=== PATIENT | female | born 2000 | race Two or more races ===

== ENCOUNTER 2020-06-04 13:06 | Inpatient (IN) | payer OTHER ==
[2020-06-04 14:43] VITALS: BMI 34.1
[2020-06-04] MEDS ORDERED: BISMUTH SUBSALICYLATE 262 MG/15 ML BTL PO PRN (15:24)
[2020-06-04] MEDS ORDERED: MAGNESIUM CITRATE 300 ML BOTTLE PO PRN (15:24)
[2020-06-04] MEDS ORDERED: METHOCARBAMOL 500 MG TABLET PO PRN (15:24)
[2020-06-04] MEDS ORDERED: ACETAMINOPHEN 325 MG TABLET (FP) PO PRN ×2 (15:24)
[2020-06-04] MEDS ORDERED: IBUPROFEN 400 MG TABLET (FP) PO PRN (15:24)
[2020-06-04] MEDS ORDERED: MENTHOL/PHENOL 1 EACH UD MM PRN (15:24)
[2020-06-04] MEDS ORDERED: ONDANSETRON *ODT* 4 MG TABLET SL PRN (15:24)
[2020-06-04] MEDS ORDERED: MAG HYDROX/AL HYDROX/SIMETH 30 ML UNIT-DOSE CUP PO PRN (15:24)
[2020-06-04] MEDS ORDERED: LORazepam 1 MG TABLET PO PRN (15:24)
[2020-06-04] MEDS ORDERED: MAGNESIUM HYDROX 2400MG/30ML ORAL SUSPENSION 30 ML CUP PO PRN (15:24)
[2020-06-04 17:12] LABS: HEMATOCRIT 37.5 % (32.4-45.2); HEMOGLOBIN 12.4 GM/dL (10.7-15.3); MCH 31.1 pg (25.7-33.7); MCHC 33.2 g/dl (32.0-36.0); MEAN CELL VOLUME 93.8 fl (80-96); PLATELET COUNT 273 K/MM3 (134-434); RDW 15.9 % (11.6-15.6); WHITE BLOOD COUNT 6.7 K/mm3 (4.0-10.0)
[2020-06-04 17:14] LABS: POTASSIUM 3.8 mmol/L (3.5-5.1)
[2020-06-04 17:18] LABS: ALBUMIN 3.6 g/dl (3.4-5.0); CALCIUM 8.8 mg/dL (8.5-10.1)
[2020-06-04 17:19] LABS: BLOOD UREA NITROGEN 10.4 mg/dL (7-18)
[2020-06-04 17:21] LABS: CREATININE 0.7 mg/dL (0.55-1.3)
[2020-06-04 17:23] LABS: BILIRUBIN,TOTAL 0.5 mg/dL (0.2-1); TOT PROT 7.3 g/dl (6.4-8.2)
[2020-06-04] MEDS: LORazepam 2 MG TABLET PO SCH ×2 (17:31→22:17)
[2020-06-04] MEDS: hydrOXYzine PAMOATE 25 MG CAPSULE (FP) PO SCH ×2 (17:32→22:17)
[2020-06-04] MEDS: NICOTINE POLACRILEX 2 MG GUM BUC PRN (17:36)
[2020-06-04] MEDS: MELATONIN 5 MG TABLETS PO SCH (22:17)
[2020-06-04] MEDS: THIAMINE HCL 100 MG TABLET (FP) PO SCH (22:17)
[2020-06-05] MEDS: LORazepam 2 MG TABLET PO SCH ×4 (06:08→23:06)
[2020-06-05] MEDS: hydrOXYzine PAMOATE 25 MG CAPSULE (FP) PO SCH ×2 (06:09→10:15)
[2020-06-05] MEDS: PRENATAL VITAMINS W/ FOLIC ACID TABLET (FP) PO SCH (10:14)
[2020-06-05] MEDS: hydrOXYzine PAMOATE 25 MG CAPSULE (FP) PO PRN (14:15)
[2020-06-05] MEDS: MELATONIN 5 MG TABLETS PO SCH (23:06)
[2020-06-05] MEDS: THIAMINE HCL 100 MG TABLET (FP) PO SCH (23:06)
[2020-06-06] MEDS: LORazepam 1 MG TABLET PO SCH ×4 (05:50→22:11)
[2020-06-06] MEDS: PRENATAL VITAMINS W/ FOLIC ACID TABLET (FP) PO SCH (10:30)
[2020-06-06] MEDS: NICOTINE POLACRILEX 2 MG GUM BUC PRN ×2 (12:44→19:14)
[2020-06-06] MEDS: hydrOXYzine PAMOATE 25 MG CAPSULE (FP) PO PRN (15:56)
[2020-06-06] MEDS: MELATONIN 5 MG TABLETS PO SCH (22:11)
[2020-06-06] MEDS: THIAMINE HCL 100 MG TABLET (FP) PO SCH (22:30)
[2020-06-07] MEDS ORDERED: LORazepam 0.5 MG TABLET PO PRN
[2020-06-07] MEDS: LORazepam 0.5 MG TABLET PO SCH ×4 (05:48→22:10)
[2020-06-07] MEDS: NICOTINE POLACRILEX 2 MG GUM BUC PRN ×3 (10:13→22:18)
[2020-06-07] MEDS: PRENATAL VITAMINS W/ FOLIC ACID TABLET (FP) PO SCH (10:13)
[2020-06-07] MEDS: hydrOXYzine PAMOATE 25 MG CAPSULE (FP) PO PRN ×2 (17:56→22:10)
[2020-06-07] MEDS: MELATONIN 5 MG TABLETS PO SCH (22:10)
[2020-06-07] MEDS: THIAMINE HCL 100 MG TABLET (FP) PO SCH (22:10)
[2020-06-08] MEDS ORDERED: LORazepam 0.5 MG TABLET PO ONE (05:00)
[2020-06-08 06:15] VITALS: TEMP 97.1
[2020-06-08 09:17] VITALS: BP 130/76; PULSE 111
[2020-06-08] MEDS: PRENATAL VITAMINS W/ FOLIC ACID TABLET (FP) PO SCH (09:23)
== END 2020-06-08 11:33 | disposition other institution (70) | DRG 775 ==
LOC: YASAS 13:06 → Y3N 15:34
PROVIDERS: ADMIT Allergy & Immunology; ATTEND Allergy & Immunology
PROC: HZ2ZZZZ Detoxification Services for Substance Abuse Treatment (ICD-10-PCS; principal; 2020-06-04)
DX: F10.230 Alcohol dependence with withdrawal, uncomplicated (principal); F13.20 Sedative, hypnotic or anxiolytic dependence, uncomplicated; F12.20 Cannabis dependence, uncomplicated; F17.210 Nicotine dependence, cigarettes, uncomplicated; F41.9 Anxiety disorder, unspecified; D64.9 Anemia, unspecified; G47.00 Insomnia, unspecified; E66.9 Obesity, unspecified; Z68.34 Body mass index [BMI] 34.0-34.9, adult; R00.0 Tachycardia, unspecified; Z56.0 Unemployment, unspecified; Z59.0 Homelessness
CPT/HCPCS: 36415; 80053; 81025; 85027; 86780; 93005; 93010; C9803; U0003

== ENCOUNTER 2020-06-08 11:39 | Inpatient (IN) | payer OTHER ==
[2020-06-08] MEDS ORDERED: MAGNESIUM HYDROX 2400MG/30ML ORAL SUSPENSION 30 ML CUP PO PRN (12:26)
[2020-06-08] MEDS ORDERED: IBUPROFEN 400 MG TABLET (FP) PO PRN (12:26)
[2020-06-08] MEDS ORDERED: ACETAMINOPHEN 325 MG TABLET (FP) PO PRN (12:26)
[2020-06-08] MEDS ORDERED: guaiFENesin 200 MG/10 ML 10 ML UNIT-DOSE CUPS PO PRN (12:26)
[2020-06-08] MEDS ORDERED: MENTHOL/PHENOL 1 EACH UD MM PRN (12:26)
[2020-06-08] MEDS ORDERED: LOPERAMIDE HCL 2 MG CAPSULE PO PRN (12:26)
[2020-06-08] MEDS ORDERED: P-EPHED 60MG/TRIPROLIDI 2.5MG TABLET PO PRN (12:26)
[2020-06-08] MEDS ORDERED: MAGNESIUM CITRATE 300 ML BOTTLE PO PRN (12:26)
[2020-06-08] MEDS ORDERED: MAG HYDROX/AL HYDROX/SIMETH 30 ML UNIT-DOSE CUP PO PRN (12:26)
[2020-06-08] MEDS ORDERED: hydrOXYzine PAMOATE 25 MG CAPSULE (FP) PO PRN (12:26)
[2020-06-08] MEDS: THIAMINE HCL 100 MG TABLET (FP) PO SCH (21:26)
[2020-06-08] MEDS: MELATONIN 5 MG TABLETS PO SCH (21:26)
[2020-06-09] MEDS: NICOTINE POLACRILEX 4 MG GUM BUC PRN ×2 (10:17→21:29)
[2020-06-09] MEDS: PRENATAL VITAMINS W/ FOLIC ACID TABLET (FP) PO SCH (10:17)
[2020-06-09] MEDS: NICOTINE 21 MG/24 HOURS TOPICAL PATCH TD SCH (10:18)
[2020-06-09 13:02] LABS: HIV INTERPRETATION NEGATIVE (NEGATIVE)
[2020-06-09] MEDS: THIAMINE HCL 100 MG TABLET (FP) PO SCH (21:27)
[2020-06-09] MEDS: MELATONIN 5 MG TABLETS PO SCH (21:27)
[2020-06-10] MEDS: NICOTINE 21 MG/24 HOURS TOPICAL PATCH TD SCH (10:17)
[2020-06-10] MEDS: PRENATAL VITAMINS W/ FOLIC ACID TABLET (FP) PO SCH (10:17)
[2020-06-10] MEDS: NICOTINE POLACRILEX 4 MG GUM BUC PRN ×2 (10:17→21:59)
[2020-06-10] MEDS: SUVOREXANT 10 MG TABLET PO PRN (21:13)
[2020-06-10] MEDS: THIAMINE HCL 100 MG TABLET (FP) PO SCH (21:13)
[2020-06-10] MEDS ORDERED: MELATONIN 5 MG TABLETS PO SCH (22:00)
[2020-06-11] MEDS: PRENATAL VITAMINS W/ FOLIC ACID TABLET (FP) PO SCH (10:27)
[2020-06-11] MEDS: NICOTINE 21 MG/24 HOURS TOPICAL PATCH TD SCH (10:27)
[2020-06-11] MEDS: NICOTINE POLACRILEX 4 MG GUM BUC PRN ×2 (10:27→21:38)
[2020-06-11] MEDS: THIAMINE HCL 100 MG TABLET (FP) PO SCH (21:36)
[2020-06-11] MEDS: SUVOREXANT 10 MG TABLET PO PRN (21:37)
[2020-06-12 07:24] VITALS: BP 110/72; PULSE 78; TEMP 98.1
[2020-06-12] MEDS: PRENATAL VITAMINS W/ FOLIC ACID TABLET (FP) PO SCH (11:06)
[2020-06-12] MEDS: NICOTINE 21 MG/24 HOURS TOPICAL PATCH TD SCH (11:07)
[2020-06-12] MEDS: NICOTINE POLACRILEX 4 MG GUM BUC PRN (11:07)
== END 2020-06-12 14:52 | disposition left against medical advice (07) | DRG 770 ==
LOC: YASAS 11:39 → Y3W 11:42
PROVIDERS: ADMIT Allergy & Immunology; ATTEND Allergy & Immunology
PROC: HZ42ZZZ Group Counseling for Substance Abuse Treatment, Cognitive-Behavioral (ICD-10-PCS; principal; 2020-06-08)
DX: F10.20 Alcohol dependence, uncomplicated (principal); F13.20 Sedative, hypnotic or anxiolytic dependence, uncomplicated; F12.20 Cannabis dependence, uncomplicated; F17.210 Nicotine dependence, cigarettes, uncomplicated; F19.282 Other psychoactive substance dependence with psychoactive substance-induced sleep disorder; Z59.0 Homelessness; Z56.0 Unemployment, unspecified
CPT/HCPCS: 36415; 87389; C9803; U0003